=== PATIENT | male | born 1970 | race Caucasian/White ===

== ENCOUNTER → 2017-06-03 | Outpatient (CLI) | payer SELFPAY ==
[2012-07-27 13:28] VITALS: BP 127/71
--- NOTE | 2017-06-03 18:47 | CT ---
HISTORY: Chest pain. Cardiac CTA with calcium scoring Technique: Multiple axial images of the chest were obtained on a [address] from the aortic arch to the base of the heart with retrospective cardiac gating. Noncontrast evaluation of th e heart was performed for calcium scoring with prospective gating. 3D reconstructions and vessel dav lysis were performed on a vital imaging workstation. Dose reduction techniques including Automated E xposure Control (AEC) and adjustment of mA and kV were utilized. Findings: A total calcium score of 0 is observed. The score results in a very low likelihood of coronary event s given the age and sex matched cohort analysis. Evaluation of the coronary arterial system demonstrates no significant disease of the left main, left circumflex, or LAD. In addition, in no significant disease of the right coronary artery can be iden tified. Extracardiac findings: No pathologically enlarged lymphadenopathy can be observed. The aortic arch is unremarkable in its a ppearance with normal vascular configuration. No significant pericardial effusion can be identified. The visualized portions of the lung parenchyma are unremarkable. No lytic or blastic lesions can b e identified within the visualized bony thorax. The visualized portions of the abdomen demonstrate n ormal perfusion patterns of the spleen and liver. IMPRESSION: Total calcium score of 0 that results in a very low likelihood of coronary artery events. Reported By:
== END ==
LOC: RAD 15:24
PROVIDERS: ATTEND Nurse Practitioner Family
DX: Z13.6 Encounter for screening for cardiovascular disorders (principal)

== ENCOUNTER 2017-08-02 10:52 | Emergency (ER) | payer BC ==
[2017-08-02] MEDS ORDERED: XYLOCAINE 1 % (PLAIN) ONE (11:01)
[2017-08-02 11:04] VITALS: BP 142/80; BMI 31.6
[2017-08-02] MEDS ORDERED: ADACEL TDaP IM ONE ×2 (11:16→11:18)
[2017-08-02] MEDS ORDERED: BACITRACIN ZINC ONE (11:35)
--- NOTE | 2017-08-02 11:36 | DR.EXTPAIN ---
HPI - Time seen Time seen: 11:35 - PCP Primary Care Physician: HAFSA - HPI Comment HPI Comment: TD NOT UTD. - Complaint/Symptoms Chief Complaint Doctor Comments: LACERATION LEFT MIDDLE FINGER. PATIENT CUT TIP OF FINGER WITH CARPET BLADE. Chief Complaint:: CUT MIDDLE FINGER WITH CARPET BLADE - Nurses notes reviewed Nurses Notes Review: Yes - Source History Provided: Patient - Mode of arrival Mode of Arrival: Ambulatory - Timing Onset of Chief Complaint: 08/02/17 - Context History of: None - Associated signs and symptoms Associated Signs and Symptoms: Laceration PMH - PMH Past Medical History: Yes Past Medical History: Hypertension Past Surgical History: Yes Surgical History: Cholecystectomy, Tonsillectomy Past Surgical History Comment: HERNIA - Family History History of Family Medical Conditions: Yes Family Medical History: [place], Heart Failure, Hypertension - Social History Does any household member use tobacco: No Alcohol Use: None Do you use any recreational Drugs:: No Lives With: Family Lives Where: Home - infectious screening In the last 2 months have you had wt loss of >10#?: NO Have you had fever, night sweats or hemotysis?: No Have you traveled outside the country in the last 6 months?: Yes Details about traveling: [facility] Isolation: Standard ROS - Review of Systems Constitutional: No Symptoms Reported Eyes: No Symptoms Reported ENTM: No Symptoms Reported Respiratoy: No Symptoms Reported, Short of Breath Cardiovascular: No Symptoms Reported Gastrointestinal/Abdominal: No Symptoms Reported Genitourinary: No Symptoms Reported Neurological: No Symptoms Reported Musculoskeletal: No Symptoms Reported Integumentary: Wound (3CM LAC TIP LEFT MIDDLE FINGER.) Endocrine: No Symptoms Reported All Other Systems: Reviewed and Negative PE - Vital Signs Vitals: Temperature 97.5 F Pulse Rate 79 Respiratory Rate 20 Blood Pressure [Left Arm] 135/87 Blood Pressure [Right Arm] 127/71 Blood Pressure 142/80 O2 Sat by Pulse Oximetry 100 - General Limitations: No Limitations General Appearance: Alert - Head Head Exam: Normal Inspection - Eyes Eye exam: Normal Appearance - ENT ENT Exam: Normal External Ear Exam - Neck Neck Exam: Trachea Midline - Chest Chest Inspection: Symmetric Chest Wall Rise - Respiratory Respiratory Exam: Normal Lung Sounds Bilat Respiratory Exam: Bilateral Clear to Auscultation - Cardiovascular Cardiovascular Exam: Regular Rate, Normal Rhythm, Normal Heart Sounds - Abdominal Exam Abdominal Exam: Normal Inspection - Extremities Extremities Exam: Tenderness (3CM LAC LEFT INDEX FINGER.) - Lower Extremities Neurovascular/Tendon Exam: Normal Capillary Refill - Back Back Exam: Normal Inspection - Neurological Neurological Exam: Alert, Oriented X3 - Psychiatric Psychiatric Exam: Normal Affect, Normal Mood - Skin Skin Exam: Erythema, Other (LAC LT MIDDLE FINGER.) Type of Lesion: Laceration (3CM LEFT INDEX FINGER.) MDM - Differential Diagnosis Differential Diagnosis: Laceration (LEFT MIDDLE FINGER.) Course - Treatment Treatment: SEE ORDERS. - Reevaluation 1st: Improved - Education/Counseling Education/Counseling: Patient, Family Educated On: Diagnosis Procedures - Laceration/Wound Repair Left Finger Wound Length (cm): 3 Wound's Depth, Shape: Linear Wound Explored: clean Anesthesia: 2% Lidocaine Volume Anesthetic (ccs): 2 Wound Debrided: minimal Wound Repaired With: sutures Suture Size/Type: 5:0 Number of Sutures: 5 Layer Closure?: No Sterile Dressing Applied?: Yes Splint Applied?: No Sling Applied?: No - Diagnosis Discharge Problem: Laceration of finger - Discharge Plan Disposition: 01 HOME, SELF-CARE Condition: Stable - Follow ups/Referrals Follow ups/Referrals: NAVID MCCAIN [Primary Care Provider] - 3 days - Instructions Instructions: Laceration Care, Adult, [id number] Additional Instructions: RETURN TO ED IF WORSE. SUTURE OUT IN 7 DAYS
== END 2017-08-02 12:12 | disposition home or self-care (01) ==
LOC: ER 10:55
PROC: 0XQRXZZ Repair Left Middle Finger, External Approach (ICD-10-PCS; principal; 2017-08-02)
DX: S61.213A Laceration without foreign body of left middle finger without damage to nail, initial encounter (principal); W26.8XXA Contact with other sharp object(s), not elsewhere classified, initial encounter; Y92.9 Unspecified place or not applicable
CPT/HCPCS: 12002; 90471; 99282; J2001